=== PATIENT | male | born 1945 | race Caucasian/White ===

== ENCOUNTER 2023-11-23 12:53 | Outpatient (AMB) | payer OTHER, SELFPAY ==
--- NOTE | 2023-11-23 12:55 | A.OFFVIS_ITS ---
Vital Signs 11/23/23 13:07 Height 6 ft Weight 165 lb BMI 22.4 BP 170/90 H Blood Pressure Location Lt brachial Position Sitting Respiration 16 Pulse 61 Pulse Source Pulse Oximeter Pulse Oximetry (%) 95 Oxygen Delivery Method Room Air Intake Visit Reasons: ENP: Secondary Parkinson - Confirmed Intake Note: Pt presents for a new pt consultation for Parkinson's. Director Workers Compensation Required: No Allergies No Known Allergies Allergy (Verified 11/23/23 13:01) Medication List - Last Reconciled 11/23/23 by Soni Valencia MD ammonium lactate 12% 1 appl topical DAILY carbidopa-levodopa 25-100 mg 3 tabs PO QID dextromethorphan-quinidine 20-10 mg 1 cap PO Q12H hydrochlorothiazide 12.5 mg PO DAILY ipratropium bromide 2.5 mL inhalation Q6H PRN lidocaine 4% 1 patch topical DAILY PRN lisinopril 2.5 mg PO DAILY naproxen 250 mg PO BID PRN paroxetine HCl 30 mg PO DAILY pyridostigmine bromide 60 mg PO TID simethicone (Gas Relief (simethicone)) 80 mg PO BEDTIME HPI Comments Details: 78y/o male comes for further management of Multiple system atrophy.He was diagnosed with MSA about 11 years ago . he started having dysarthria , balance issues, orthostatic hypotension which progressed. He is currently on sinemet 25/100 3 tabs qid His main issues are dysarthria, falls, dizziness, constipation etc. He has mild memory issues. He has mild sleep apnea- tried CPAP but he could not tolerate it. He has pseudobulbar affect and mild depression. He is motivated. He has swallowing issues and coughs a lot. He had a recent swallow test.He has slurred speech. He is right handed and is hard to write. He needs assistance with dressing showers, eating etc. No hallucinations He has constipation and he uses fiber and when needed enema.He uses a walker at home . No double vision, vertigo . 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 Mother No problems noted. Social History Household Members: Spouse Household Members Other:: - Valeria Housing: House Alcohol intake: never Patient Tobacco Use Status: Never used Tobacco Physical Exam Vital Signs: Last Vital Signs Pulse 61 11/23/23 13:07 Resp 16 11/23/23 13:07 BP 170/90 H 11/23/23 13:07 Pulse Ox 95 11/23/23 13:07 Oxygen Delivery Method Room Air 11/23/23 13:07 BMI result Body Mass Index 22.4 Const General: cooperative, comfortable and no acute distress Nutritional Appearance: average body habitus Orientation/consciousness: patient oriented x3 Neuro Other: Gait not evaluated- patient did not bring his walker speech - slurred Tone increased right UE FFM and foot taps decreased No tremors hammer toes General: patient oriented x3 and moves all extremities Cranial nerves: Yes Facial sensation intact/muscles of mastication intact, Yes Bilaterally intact EOM present, Yes Nystagmus not present, Yes Normal facial strength present, Yes Midline tongue present, Yes Symmetric palate elevation present and Yes Ability to bilaterally elevate shoulders present Cognition (Neuro): normal cognition Motor exam (neuro): 5/5 motor strength present throughout Deep tendon reflexes (DTR's): Right triceps reflex intensity grade: 3+, Left triceps reflex intensity grade: 3+, Rt Biceps (C5, C6): 3+, Left biceps reflex intensity grade: 3+, Right brachioradialis reflex intensity grade: 3+, Left brachioradialis reflex intensity grade: 3+, Right patellar reflex intensity grade: 3+ and Left patellar reflex intensity grade: 3+ Coordination: [id number] test normal Assessment & Plan Assessment & Plan (1) Multiple system atrophy with bradykinesia: Code(s): G23.8 - Other specified degenerative diseases of basal ganglia; G90.3 - Multi- system degeneration of the autonomic nervous system Category: Medical Plan Discussed the diagnosis in detail Continue carbidopa/levodopa 25/100 3 tabs qid Monitor blood pressure Increase range of motion exercises Miralax as needed Medications: New polyethylene glycol 3350 (Miralax) 17 grams PO DAILY 510 grams 6RF polyethylene glycol 3350 (Miralax) 17 grams PO DAILY 510 grams 6RF Coding Level of Care Code New Pt Level 4 (91212) Complex EM visit Add On G2211 Diagnoses Multiple system atrophy with bradykinesia G23.8; G90.3
[2023-11-23 13:07] VITALS: BP 170/90; PULSE 61; RESP 16; O2SAT 95; BMI 22.4
== END 2023-11-23 13:51 | disposition home or self-care (01) ==
PROVIDERS: PCP Psychiatry & Neurology Neurology; Referring Provider Psychiatry & Neurology Neurology; Visit Provider Psychiatry & Neurology Neurology
DX: G23.8 Other specified degenerative diseases of basal ganglia (principal); G90.3 Multi-system degeneration of the autonomic nervous system
CPT/HCPCS: 99204; G2211

== ENCOUNTER → 2023-11-23 12:53 | Outpatient (BNVA) | payer OTHER, SELFPAY | PROVIDERS: PCP Psychiatry & Neurology Neurology; Visit Provider Psychiatry & Neurology Neurology | DX: G23.8 Other specified degenerative diseases of basal ganglia (principal); G90.3 Multi-system degeneration of the autonomic nervous system | CPT/HCPCS: 99202 ==

== ENCOUNTER 2024-01-30 08:31 | Outpatient (AMB) | payer OTHER, SELFPAY ==
--- NOTE | 2024-01-30 08:31 | MHC.OFFVIS ---
Vital Signs 01/30/24 08:32 Height 6 ft Weight 165 lb BMI 22.4 Intake Visit Reasons: Follow up Rv Mechanic Required: No Allergies No Known Allergies Allergy (Verified 01/30/24 08:31) HPI Comments Details: 78y/o male calls for urgent follow up. On 25 January 2024 woke up with stiffness and could not get up from bed. His helped him to go to bathroom and on the way back he could not walk - was frozen . His called 911 was taken to ER and all his test were negative. 2 days later he had an episode - he was sitting in a table and passed out . His heart rate was very low and was given medication. He is on pyridostigmine for orthostatic hypotension prescribe carine his neurologist at [place] History from initial visit-He has h/o Multiple system atrophy.He was diagnosed with MSA about 11 years ago . he started having dysarthria , balance issues, orthostatic hypotension which progressed. He is currently on sinemet 25/100 3 tabs qid His main issues are dysarthria, falls, dizziness, constipation etc. He has mild memory issues. He has mild sleep apnea- tried CPAP but he could not tolerate it. He has pseudobulbar affect and mild depression. He is motivated. He has swallowing issues and coughs a lot. He had a recent swallow test.He has slurred speech. He is right handed and is hard to write. He needs assistance with dressing showers, eating etc. No hallucinations He has constipation and he uses fiber and when needed enema.He uses a walker at home . No double vision, vertigo . 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 Mother No problems noted. Social History Household Members: Spouse Household Members Other:: - Valeria Housing: House Alcohol intake: never Patient Tobacco Use Status: Never used Tobacco Physical Exam Vital Signs: BMI result Body Mass Index 22.4 Const Other: Slurred speech Orientation/consciousness: patient oriented x3 Neuro General: patient oriented x3 Telehealth Telehealth Telehealth Platform: Telephone Location of provider rendering services: practice address Location of patient: address on file Patient Identification confirmed using: Name, : Yes Telehealth method: voice only Patient verbally consented to treatment: Yes Patient verbally consented to billing insurance company: Yes Patient informed of any privacy concerns related to visit: Yes Minutes spent on Phone/Video with Pt.: 21 Assessment & Plan Assessment & Plan (1) Multiple system atrophy with bradykinesia: Comment: with freezing episodes and 1 epsiode of passing out Code(s): G23.8 - Other specified degenerative diseases of basal ganglia; G90.3 - Multi-system degeneration of the autonomic nervous system Category: Medical Plan Discussed the diagnosis in detail Change carbidopa/levodopa 25/100 2-3-2-3-2 Consult cardiology about bradycardia will consider northera to replace pyridostigmine Monitor blood pressure Increase range of motion exercises Miralax as needed Coding Level of Care Code Tele Est Pt Level 4 (66431) Complex EM visit Add On G2211 Diagnoses Multiple system atrophy with bradykinesia G23.8; G90.3
[2024-01-30 08:32] VITALS: BMI 22.4
== END 2024-02-02 08:03 | disposition home or self-care (01) ==
PROVIDERS: PCP Psychiatry & Neurology Neurology; Visit Provider Psychiatry & Neurology Neurology
DX: G23.8 Other specified degenerative diseases of basal ganglia (principal); G90.3 Multi-system degeneration of the autonomic nervous system
CPT/HCPCS: 99214; G2211

== ENCOUNTER → 2024-01-30 08:31 | Outpatient (BNVA) | payer OTHER, SELFPAY | PROVIDERS: PCP Psychiatry & Neurology Neurology; Visit Provider Psychiatry & Neurology Neurology ==

== ENCOUNTER 2024-02-26 12:47 | Outpatient (AMB) | payer OTHER, SELFPAY ==
--- NOTE | 2024-02-26 12:52 | MHC.OFFVIS ---
Intake Visit Reasons: 1 mo Follow up Intake Note: patient presents for 1 month foklow up Allergies No Known Allergies Allergy (Verified 02/26/24 12:59) HPI Comments Details: 78y/o male calls for follow up He had an episode - he was sitting in a table and passed out . His heart rate was very low and was given medication. He is on pyridostigmine for orthostatic hypotension prescribed by his neurologist at [place] History from initial visit-He has h/o Multiple system atrophy.He was diagnosed with MSA about 11 years ago . he started having dysarthria , balance issues, orthostatic hypotension which progressed. He is currently on sinemet 25/100 3 tabs qid His main issues are dysarthria, falls, dizziness, constipation etc. He has mild memory issues. He has mild sleep apnea- tried CPAP but he could not tolerate it. He has pseudobulbar affect and mild depression. He is motivated. He has swallowing issues and coughs a lot. He had a recent swallow test.He has slurred speech. He is right handed and is hard to write. He needs assistance with dressing showers, eating etc. No hallucinations He has constipation and he uses fiber and when needed enema.He uses a walker at home . No double vision, vertigo . 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 Mother No problems noted. Social History Household Members: Spouse Household Members Other:: - Valeria Housing: House Alcohol intake: never Patient Tobacco Use Status: Never used Tobacco Physical Exam Const General: cooperative, comfortable and no acute distress Nutritional Appearance: average body habitus Orientation/consciousness: patient oriented x3 Neuro Other: Gait not evaluated- patient did not bring his walker speech - slurred Tone increased right UE FFM and foot taps decreased No tremors hammer toes General: patient oriented x3 and moves all extremities Cranial nerves: Yes Facial sensation intact/muscles of mastication intact, Yes Bilaterally intact EOM present, Yes Nystagmus not present, Yes Normal facial strength present, Yes Midline tongue present, Yes Symmetric palate elevation present and Yes Ability to bilaterally elevate shoulders present Cognition (Neuro): normal cognition Motor exam (neuro): 5/5 motor strength present throughout Coordination: [id number] test normal Assessment & Plan Assessment & Plan (1) Multiple system atrophy with bradykinesia: Comment: with freezing episodes and 1 epsiode of passing out Code(s): G23.8 - Other specified degenerative diseases of basal ganglia; G90.3 - Multi-system degeneration of the autonomic nervous system Category: Medical Plan Discussed the diagnosis in detail Change carbidopa/levodopa 25/100 2tabs 6am,9am,12 noon,3pm,6pm,9pm Consult cardiology about bradycardia will consider northera to replace pyridostigmine Monitor blood pressure Increase range of motion exercises Miralax as needed Coding Level of Care Code Est Pt Level 4 (74147) Complex EM visit Add On G2211 Diagnoses Multiple system atrophy with bradykinesia G23.8; G90.3
== END 2024-02-26 13:47 | disposition home or self-care (01) ==
PROVIDERS: PCP Psychiatry & Neurology Neurology; Visit Provider Psychiatry & Neurology Neurology
DX: G23.8 Other specified degenerative diseases of basal ganglia (principal); G90.3 Multi-system degeneration of the autonomic nervous system
CPT/HCPCS: 99214; G2211

== ENCOUNTER → 2024-02-26 12:47 | Outpatient (BNVA) | payer OTHER, SELFPAY | PROVIDERS: PCP Psychiatry & Neurology Neurology; Visit Provider Psychiatry & Neurology Neurology | DX: G90.3 Multi-system degeneration of the autonomic nervous system (principal); G23.8 Other specified degenerative diseases of basal ganglia | CPT/HCPCS: 99212 ==

== ENCOUNTER 2024-04-18 10:53 | Outpatient (AMB) | payer OTHER, SELFPAY ==
--- NOTE | 2024-04-18 10:53 | A.OFFVIS_ITS ---
Intake Visit Reasons: 2 mo Follow up, Intake Note: patient presents for follow up Allergies No Known Allergies Allergy (Verified 04/18/24 10:54) Medication List - Last Reconciled 04/18/24 by Soni Valencia MD ammonium lactate 12% 1 appl topical DAILY carbidopa-levodopa 25-100 mg 3 tabs PO QID dextromethorphan-quinidine 20-10 mg 1 cap PO Q12H hydrochlorothiazide 25 mg PO DAILY ipratropium bromide 2.5 mL inhalation Q6H PRN lidocaine 4% 1 patch topical DAILY PRN lisinopril 2.5 mg PO DAILY naproxen 250 mg PO BID PRN paroxetine HCl 15 mg PO DAILY polyethylene glycol 3350 (Miralax) 17 grams PO DAILY pyridostigmine bromide 30 mg PO TID simethicone (Gas Relief (simethicone)) 80 mg PO BEDTIME HPI Comments Details: 78y/o male calls for follow up He had an episode in the bathroom 2 weeks ago . No passing out . EMT was called. His BP has been high in the past few weeks and is on HCTZ and lisinopril 2.5 mg q noon. It was changed to HCTZ,Lisinopril in the morning / he self monitors his BP> He is on pyridostigmine for orthostatic hypotension prescribed by his neurologist at [place] History from initial visit-He has h/o Multiple system atrophy.He was diagnosed with MSA about 11 years ago . he started having dysarthria , balance issues, orthostatic hypotension which progressed. He is currently on sinemet 25/100 3 tabs qid His main issues are dysarthria, falls, dizziness, constipation etc. He has mild memory issues. He has mild sleep apnea- tried CPAP but he could not tolerate it. He has pseudobulbar affect and mild depression. He is motivated. He has swallowing issues and coughs a lot. He had a recent swallow test.He has slurred speech. He is right handed and is hard to write. He needs assistance with dressing showers, eating etc. No hallucinations He has constipation and he uses fiber and when needed enema.He uses a walker at home . No double vision, vertigo . 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 Mother No problems noted. Social History Household Members: Spouse Household Members Other:: - Valeria Housing: House Alcohol intake: never Patient Tobacco Use Status: Never used Tobacco Telehealth Telehealth Telehealth Platform: Telephone Location of provider rendering services: practice address Location of patient: address on file Patient Identification confirmed using: Name, : Yes Telehealth method: voice only Patient verbally consented to treatment: Yes Patient verbally consented to billing insurance company: Yes Patient informed of any privacy concerns related to visit: Yes Minutes spent on Phone/Video with Pt.: 23 Assessment & Plan Assessment & Plan (1) Multiple system atrophy with bradykinesia: Comment: with freezing episodes and 1 epsiode of passing out Code(s): G23.8 - Other specified degenerative diseases of basal ganglia; G90.3 - Multi- system degeneration of the autonomic nervous system Category: Medical Plan Discussed the diagnosis in detail Change carbidopa/levodopa 25/100 2tabs 6am,9am,12 noon,3pm,6pm,9pm decrease pyridostigmine to 30mg tid Consult cardiology about bradycardia will consider northera to replace pyridostigmine Monitor blood pressure Increase range of motion exercises Miralax as needed Medications: Changed From carbidopa-levodopa 25-100 mg 3 tabs PO QID 360 tabs 6RF To carbidopa-levodopa 25-100 mg 2 tabs PO .6 times a day 360 tabs 6RF Coding Level of Care Code Tele Est Pt Level 4 (13093) Diagnoses Multiple system atrophy with bradykinesia G23.8; G90.3
== END 2024-04-18 14:15 | disposition home or self-care (01) ==
LOC: HO.HSMS 10:53
PROVIDERS: PCP Psychiatry & Neurology Neurology; Visit Provider Psychiatry & Neurology Neurology
DX: G23.8 Other specified degenerative diseases of basal ganglia (principal); G90.3 Multi-system degeneration of the autonomic nervous system
CPT/HCPCS: 98013

== ENCOUNTER → 2024-04-18 10:53 | Outpatient (BNVA) | payer OTHER, SELFPAY | PROVIDERS: PCP Psychiatry & Neurology Neurology; Visit Provider Psychiatry & Neurology Neurology | DX: G23.8 Other specified degenerative diseases of basal ganglia (principal); G90.3 Multi-system degeneration of the autonomic nervous system ==

== ENCOUNTER 2024-06-18 13:12 | Outpatient (AMB) | payer OTHER, SELFPAY ==
--- NOTE | 2024-06-18 13:10 | A.OFFVIS_ITS ---
Intake Visit Reasons: follow up for Parkinsons Intake Note: Patient presents for follow up bradykenesia and med changes Allergies No Known Allergies Allergy (Verified 06/18/24 13:13) Medication List - Last Reconciled 06/18/24 by Soni Valencia MD ammonium lactate 12% 1 appl topical DAILY carbidopa-levodopa 25-100 mg 2 tabs PO .6 times a day dextromethorphan-quinidine 20-10 mg 1 cap PO Q12H hydrochlorothiazide 25 mg PO DAILY ipratropium bromide 2.5 mL inhalation Q6H PRN lidocaine 4% 1 patch topical DAILY PRN lisinopril 5 mg PO DAILY naproxen 250 mg PO BID PRN paroxetine HCl 15 mg PO DAILY polyethylene glycol 3350 (Miralax) 17 grams PO DAILY pyridostigmine bromide 30 mg (1/2 x 60 mg) PO TID simethicone (Gas Relief (simethicone)) 80 mg PO BEDTIME HPI Comments Details: 78y/o male calls for follow up. He had a ER viist 2 weeks ago for low blood pressure- IV fluids helped. No passing out . EMT was called. His BP has been high in the past few weeks and is on HCTZ and lisinopril 2.5 mg q noon. It was changed to HCTZ,Lisinopril in the morning / he self monitors his BP>- his BP has been high . He is seeing a new perinatal nurse now . He is on pyridostigmine for orthostatic hypotension prescribed by his neurologist at [place] History from initial visit-He has h/o Multiple system atrophy.He was diagnosed with MSA about 11 years ago . he started having dysarthria , balance issues, orthostatic hypotension which progressed. He is currently on sinemet 25/100 3 tabs qid His main issues are dysarthria, falls, dizziness, constipation etc. He has mild memory issues. He has mild sleep apnea- tried CPAP but he could not tolerate it. He has pseudobulbar affect and mild depression. He is motivated. He has swallowing issues and coughs a lot. He had a recent swallow test.He has slurred speech. He is right handed and is hard to write. He needs assistance with dressing showers, eating etc. No hallucinations He has constipation and he uses fiber and when needed enema.He uses a walker at home . No double vision, vertigo . 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 Mother No problems noted. Social History Household Members: Spouse Household Members Other:: - Valeria Housing: House Alcohol intake: never Patient Tobacco Use Status: Never used Tobacco Physical Exam Const General: cooperative and no acute distress Neuro Other: speech - slurred Telehealth Telehealth Telehealth Platform: Telephone Location of provider rendering services: practice address Location of patient: address on file Patient Identification confirmed using: Name, : Yes Telehealth method: voice only Patient verbally consented to treatment: Yes Patient verbally consented to billing insurance company: Yes Patient informed of any privacy concerns related to visit: Yes Assessment & Plan Assessment & Plan (1) Multiple system atrophy with bradykinesia: Comment: with freezing episodes Code(s): G23.8 - Other specified degenerative diseases of basal ganglia; G90.3 - Multi- system degeneration of the autonomic nervous system Category: Medical Plan Discussed the diagnosis in detail decrease carbidopa/levodopa 25/100 2tabs 6am,12 noon 6pm 1 1/2 9am,3pm,9pm pyridostigmine to 30mg tid F/u cardiology about bradycardia will consider northera to replace pyridostigmine Monitor blood pressure Increase range of motion exercises Miralax as needed Coding Level of Care Code Tele [facility] Pt Level 4 (57666) Diagnoses Multiple system atrophy with bradykinesia G23.8; G90.3
== END 2024-06-18 13:30 | disposition home or self-care (01) ==
LOC: HO.HSMS 13:12
PROVIDERS: PCP Psychiatry & Neurology Neurology; Visit Provider Psychiatry & Neurology Neurology
DX: G23.8 Other specified degenerative diseases of basal ganglia (principal); G90.3 Multi-system degeneration of the autonomic nervous system
CPT/HCPCS: 98014

== ENCOUNTER → 2024-06-18 13:12 | Outpatient (BNVA) | payer OTHER, SELFPAY | PROVIDERS: PCP Psychiatry & Neurology Neurology; Visit Provider Psychiatry & Neurology Neurology ==

== ENCOUNTER 2025-03-11 08:35 | Outpatient (AMB) | payer OTHER, SELFPAY ==
--- NOTE | 2025-03-11 08:25 | A.OFFVIS_ITS ---
Intake Visit Reasons: Follow up appt. Director Of Perioperative Services Required: No Accompanied by: Spouse Allergies No Known Allergies Allergy (Verified 03/11/25 08:29) Medication List - Last Reconciled 03/11/25 by Soni Valencia MD ammonium lactate 12% 1 appl topical DAILY carbidopa-levodopa 25-100 mg 2 tabs PO 6XD MDD 12 tablets dextromethorphan-quinidine 20-10 mg 1 cap PO Q12H hydrochlorothiazide 25 mg PO DAILY ipratropium bromide 2.5 mL inhalation Q6H PRN lidocaine 4% 1 patch topical DAILY PRN linaclotide 145 mcg PO DAILY lisinopril 20 mg PO .qhs naproxen 250 mg PO BID PRN sertraline 50 mg PO DAILY simethicone (Gas Relief (simethicone)) 80 mg PO BEDTIME HPI Comments Details: 79y/o male calls for follow up. he has days where he is very weak and is unable to get up from bed.He has 1-2 days every 2 mths . He was seeing a acid plant helper- suggested [facility] in [place] He reports fatigue and increased bradykinesia - needs help with dressing . he uses a walker and wheel chair . No recent falls History form last visit-He had a ER viist 2 weeks ago for low blood pressure- IV fluids helped. No passing out . EMT was called. His BP has been high in the past few weeks and is on HCTZ and lisinopril 2.5 mg q noon. It was changed to HCTZ,Lisinopril in the morning / he self monitors his BP>- his BP has been high . He is seeing a new acid plant helper now . He is on pyridostigmine for orthostatic hypotension prescribed by his neurologist at [place] History from initial visit-He has h/o Multiple system atrophy.He was diagnosed with MSA about 11 years ago . he started having dysarthria , balance issues, orthostatic hypotension which progressed. He is currently on sinemet 25/100 3 tabs qid His main issues are dysarthria, falls, dizziness, constipation etc. He has mild memory issues. He has mild sleep apnea- tried CPAP but he could not tolerate it. He has pseudobulbar affect and mild depression. He is motivated. He has swallowing issues and coughs a lot. He had a recent swallow test.He has slurred speech. He is right handed and is hard to write. He needs assistance with dressing showers, eating etc. No hallucinations He has constipation and he uses fiber and when needed enema.He uses a walker at home . No double vision, vertigo . 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 Mother No problems noted. Social History Household Members: Spouse Household Members Other:: - Valeria Housing: House Alcohol intake: never Patient Tobacco Use Status: Never used Tobacco Physical Exam Const General: cooperative and alert Nutritional Appearance: well nourished Orientation/consciousness: oriented to person, oriented to place and oriented to time Neuro Other: good facial expression Dysarthria General: oriented to person, oriented to place and oriented to time Telehealth Telehealth Telehealth Platform: [employer] Location of provider rendering services: practice address Location of patient: address on file Patient Identification confirmed using: Name, : Yes Telehealth method: video Patient verbally consented to treatment: Yes Patient verbally consented to billing insurance company: Yes Patient informed of any privacy concerns related to visit: Yes Minutes spent on Phone/Video with Pt.: 25 Assessment & Plan Assessment & Plan (1) Multiple system atrophy with bradykinesia: Comment: with freezing episodes Code(s): G23.8 - Other specified degenerative diseases of basal ganglia; G90.3 - Multi- system degeneration of the autonomic nervous system Category: Medical Plan Discussed the diagnosis in detail carbidopa/levodopa 25/100 2tabs 6am,12 noon 6pm 1 1/2 9am,3pm,9pm- needs supervision F/u cardiology about bradycardia 24 hr Monitor blood pressure Increase range of motion exercises Miralax as needed Orders: Referrals Nephrology Referral G23.8 - Other specified degenerative diseases of basal ganglia, G90.3 - Multi-system degeneration of the autonomic nervous system Coding Level of Care Code Tele Est Pt Level 4 (79694) Diagnoses Multiple system atrophy with bradykinesia G23.8; G90.3 Time Spent (min) 25
== END 2025-03-11 12:58 | disposition home or self-care (01) ==
PROVIDERS: PCP Psychiatry & Neurology Neurology; Visit Provider Psychiatry & Neurology Neurology
DX: G23.8 Other specified degenerative diseases of basal ganglia (principal); G90.3 Multi-system degeneration of the autonomic nervous system
CPT/HCPCS: 99214